=== PATIENT | female | born 1965 | race Caucasian/White ===

== ENCOUNTER 2020-03-30 01:39 | Emergency (ER) | payer SELFPAY ==
--- NOTE | ~2020-03-30 | CT_ITS ---
EXAMINATION: CT abdomen pelvis wo con EXAM DATE: 03/30/2020 02:36 INDICATION: Right-sided flank pain for 3 hours with nausea and vomiting. TECHNIQUE: Spiral CT of the abdomen and pelvis was performed without contrast. Axial, coronal and sag ittal images were reviewed. The dose-length product (DLP) for this examination was 178.21 mGy-cm. T he exposure was tailored according to patient size (auto mA exposure control), and iterative reconstr uction (ASIR) was used as additional dose reduction technique. There is no prior study for compariso n. FINDINGS: There is a 3.5 mm stone in the distal aspect right ureter, about 3 cm from the ureterovesic ular junction. There is mild right-sided hydroureteronephrosis. Punctate bilateral nephrolithiasis. The uterus is not identified and has likely been surgically resected. The bladder is unremarkable. The liver, spleen, adrenal glands and pancreas are unremarkable. Gallbladder is unremarkable. No bi liary obstruction. There is no retroperitoneal or pelvic lymphadenopathy. The appendix is normal. The stomach and small bowel are unremarkable. There is expected amount of c olonic stool. No free intraperitoneal gas. The heart is normal in size. There are no pericardial or pleural effusions. The lung bases are unremarkable. There are no osteoblastic or osteolytic les ions identified. There is mild lumbar levoscoliosis. IMPRESSION: 1. Right distal ureteral 3.5 mm stone, mild obstructive nephropathy. 2. Punctate bilateral nephrolithiasis. Urologist consultants would appreciate KUB as baseline for follow-up, treatment planning. Reviewed, dictated and finalized at location B.
[2020-03-30 01:42] VITALS: BP 135/72; PULSE 109; RESP 18; TEMP 36.4; O2SAT 99
[2020-03-30 02:11] LABS: Basophils Percent Auto 0.5 % (0.2-1.2); Eosinophils Absolute Auto 0.1 K/mm3 (0-0.3); Eosinophils Percent Auto 1.1 % (0-4.4); Hematocrit 35.2 % (37.0-47.0); Hemoglobin 12.1 g/dL (12.0-15.0); Immature Granulocyte Absolute 0.02 K/mm3 (0.00-0.031); Immature Granulocyte Percent A 0.3 % (0-0.5); Lymphocytes Absolute Auto 1.06 K/mm3 (0.9-3.2); Lymphocytes Percent Auto 14.3 % (18.3-44.2); Mean Corpuscular HGB Conc 34.4 g/dl (32-36); Mean Corpuscular Volume 90.3 fl (80-100); Mean Platelet Volume 9.8 fl (7.4-10.4); Monocytes Absolute Auto 0.4 K/mm3 (0.1-0.6); Monocytes Percent Auto 5.7 % (2.6-8.5); Neutrophils Absolute Auto 5.8 K/mm3 (1.3-6.7); Neutrophils Percent Auto 78.1 % (45.5-73.1); Platelet Count Result 216 k/mm3 (150-375); Red Cell Distribution Width 12.5 % (11.5-14.5); White Blood Count 7.4 K/mm3 (4.5-10.0)
[2020-03-30] MEDS: ONDANSETRON INJ 4 MG/2 ML VIAL IV PUSH (02:11)
[2020-03-30 02:17] LABS: Add Urine Microscopic? YES; Appearance Urine Cloudy (Clear); Bacteria Urine Trace /hpf; Bilirubin Urine Negative (Negative); Blood Urine 2+ (Negative); Color Urine Yellow (Yellow); Glucose Urine UA Negative (Negative); Ketones Urine Negative (Negative); Leukocyte Esterase Ur Negative LEU/UL (Negative); Mucus Urine Rare /lpf; Nitrate Urine Negative (Negative); Protein Urine Negative (Negative); Specific Grav Ur 1.017 (1.001-1.035); Squamous Epithelial Cell Urine Occasional /hpf (Few); Urobilinogen Urine Negative mg/dL (<2.0)
[2020-03-30] MEDS: MORPHINE SULFATE 4 MG/ML INJ IV PUSH (02:17)
[2020-03-30 02:24] LABS: Alanine Aminotransferase 20 U/L (4-35); Albumin Level 4.6 g/dL (3.5-5.1); Alkaline Phosphatase 75 U/L (38-126); Anion Gap 9 mmol/L (8-16); Aspartate Amino Transferase 30 U/L (14-36); Bilirubin,Total 0.2 mg/dL (0.2-1.3); Blood Urea Nitrogen 19 mg/dL (7-17); Carbon Dioxide 26 mmol/L (22-30); Chloride 104 mmol/L (98-107); Estimated CRCL calculation 57 ml/min; Estimated Glomerular Filt Rate > 60; Glucose 141 mg/dL (65-105); Lipase 64 U/L (23-300); Potassium 3.7 mmol/L (3.4-5.0); Sodium 139 mmol/L (137-145)
--- NOTE | 2020-03-30 02:29 | ED.GENADULT ---
HPI - General Adult General Chief complaint: Abdominal Pain Stated complaint: R flank pain Time Seen by Provider: 03/30/20 01:44 History of Present Illness HPI narrative: Patient is a 54-year-old female who presents ER with sudden onset right-sided abdominal pain. More in the right flank region. No radiation. Associate with nausea and vomiting. Has not had similar pains before. No aggravating or alleviating factors that she is noted. No urinary frequency urgency or dysuria. No history of kidney stones. No known trauma. No dyspnea or chest pain. Related Data Home Medications Medication Instructions Recorded Confirmed biotin 1,000 mcg PO DAILY 03/30/20 glucosamine-chondroitin 2 tablet PO TID 03/30/20 levothyroxine 88 mcg PO DAILY 03/30/20 nvbtbaqy-cno-ylhfggh fumarate mg PO 03/30/20 [Multi Vitamin] sertraline [Zoloft] 50 mg PO DAILY 03/30/20 Allergies Allergy/AdvReac Type Severity Reaction Status Date / Time aspirin AdvReac Vomiting Verified 03/30/20 02:10 Review of Systems Review of Systems: All systems reviewed & are unremarkable except as noted in HPI and below Cardiovascular: Cardiovascular: Denies chest pain Respiratory: Respiratory: Denies cough and Denies dyspnea Gastrointestinal: Gastrointestinal: Denies abdominal pain, Reports nausea and Reports vomiting Genitourinary: Genitourinary: Denies hematuria, Denies nocturia, Denies dysuria and Reports flank pain PMFSH Past Medical History Medical History (Updated 03/30/20 @ 03:25 by Walt Carbone MD) Healthy female adult Surgical History Surgical History (Updated 03/30/20 @ 02:31 by Walt Carbone MD) History of hysterectomy Social History Social History (Updated 03/30/20 @ 02:31 by Walt Carbone MD) Smoking status: Never smoker Gender identity (if verbalized by the patient): Female Exam Narrative: Exam Narrative: GENERAL: Well-appearing, well-nourished, and in no acute distress. HEAD: Normocephalic, atraumatic. ENT: Mucous membranes moist. CHEST: Clear to auscultation. No respiratory distress. HEART: Regular rate and rhythm. Normal peripheral pulses. ABDOMEN: Soft, nontender, nondistended. Mild tenderness in right flank region underneath the ribs without CVA tenderness. EXTREMITIES: Normal range of motion. No edema. SKIN: Warm, dry, no rash. NEURO: Alert and oriented x3. PSYCH: Normal mood and affect. Course Course Emergency Course: Patient informed of results. Discussed treatment plan. Patient verbalized understanding. Discharge home. Vital Signs Vital signs: Vital Signs Temperature 97.5 F L 03/30/20 01:42 Pulse Rate 109 H 03/30/20 01:42 Respiratory Rate 18 03/30/20 01:42 Blood Pressure 135/72 03/30/20 01:42 Pulse Oximetry 99 03/30/20 01:42 Temperature 97.5 F L 03/30/20 01:42 Pulse Rate 81 03/30/20 03:16 Respiratory Rate 18 03/30/20 03:16 Blood Pressure 125/66 03/30/20 03:16 Pulse Oximetry 100 03/30/20 03:16 Medical Decision Making Vital Signs Vital Signs: Vital Signs Temperature 97.5 F L 03/30/20 01:42 Pulse Rate 109 H 03/30/20 01:42 Respiratory Rate 18 03/30/20 01:42 Blood Pressure 135/72 03/30/20 01:42 Pulse Oximetry 99 03/30/20 01:42 Temperature 97.5 F L 03/30/20 01:42 Pulse Rate 81 03/30/20 03:16 Respiratory Rate 18 03/30/20 03:16 Blood Pressure 125/66 03/30/20 03:16 Pulse Oximetry 100 03/30/20 03:16 Lab Data Result diagrams: 03/30/20 02:02 03/30/20 02:02 Labs: Lab Results 03/30/20 03/30/20 03/30/20 Range/Units 02:02 02:02 02:02 WBC 7.4 (4.5-10.0) K/mm3 RBC 3.90 L (4.2-5.4) M/mm3 Hgb 12.1 (12.0-15.0) g/dL Hct 35.2 L (37.0-47.0) % MCV 90.3 (80-100) fl MCH 31.0 (26-34) pg MCHC 34.4 (32-36) g/dl RDW 12.5 (11.5-14.5) % Plt Count 216 (150-375) k/mm3 MPV 9.8 (7.4-10.4) fl Immature Gran % (Auto) 0.3 (0-0.5) % Neut % (A
[2020-03-30 03:16] VITALS: BP 125/66; PULSE 81; RESP 18; O2SAT 100
[2020-03-30] MEDS: KETOROLAC 30 MG/ML VIAL (*BKC) IV PUSH (03:30)
== END 2020-03-30 04:07 | disposition home or self-care (01) ==
PROVIDERS: Emergency Provider Emergency Medicine; PCP Physician Assistant
DX: N13.2 Hydronephrosis with renal and ureteral calculous obstruction (principal)
CPT/HCPCS: 36415; 74176; 80053; 81001; 83690; 85025; 96374; 96375; 99284; J1885; J2270; J2405

== ENCOUNTER → 2021-01-14 15:10 | Outpatient (CLI) | payer OTHER, SELFPAY ==
--- NOTE | ~2021-01-14 | MM_ITS ---
EXAMINATION: MM screening trupti BI w chava HISTORY: Screening mammogram TECHNIQUE: Craniocaudal and mediolateral oblique 3-D tomosynthesis images were obtained and synthetic 2-D images were generated. CAD analysis was submitted and interpreted. COMPARISON: No prior mammogram is available for comparison at this institution. BREAST PARENCHYMAL COMPOSITION: There are scattered areas of fibroglandular density. FINDINGS: There is no evidence of suspicious mass, calcification, or architectural distortion to sugg est malignancy in either breast. There has been no suspicious interval change. IMPRESSION: 1. No mammographic evidence of malignancy. 2. Recommend routine screening mammography in one year. BI-RADS Category 1: Negative Reviewed, dictated and finalized at location A.
== END ==
PROVIDERS: Visit Provider Obstetrics & Gynecology
DX: Z12.31 Encounter for screening mammogram for malignant neoplasm of breast (principal)
CPT/HCPCS: 77063; 77067

== ENCOUNTER 2021-06-22 09:15 | Outpatient (CLI) | payer BC, SELFPAY ==
--- NOTE | ~2021-06-22 | XR_ITS ---
EXAMINATION: XR abdomen/kub 1V EXAM DATE: 06/22/2021 09:35 INDICATION: Bilateral kidney stones. TECHNIQUE: Frontal projection(s) of the abdomen for interpretation. There is no prior study for shalini sherwood. FINDINGS: Probable punctate right nephrolithiasis identified. There is moderate amount of colonic st ool, stool covering the left renal contour. Calcifications in the pelvis are believed to be phlebolit hs. No small bowel dilation. There is mild lumbar levoscoliosis. IMPRESSION: Probable punctate right nephrolithiasis. Reviewed, dictated and finalized at location B. [employer]
== END 2021-06-22 09:16 | disposition home or self-care (01) ==
PROVIDERS: PCP Physician Assistant; Visit Provider Urology
DX: N20.0 Calculus of kidney (principal)
CPT/HCPCS: 74018